=== PATIENT | male | born 1985 | race Caucasian/White ===

== ENCOUNTER 2023-07-14 15:36 | Emergency (ER) | payer SELFPAY ==
[~2023-07-14] VITALS: Ht 180.3 cm; Wt 88.5 kg
[2023-07-14] MEDS ORDERED: IBUP200 PO (15:54)
[2023-07-14] MEDS ORDERED: AMOCLA875 PO (15:56)
== END 2023-07-14 15:59 | disposition home or self-care (01) ==
LOC: ER 15:36
DX: H66.91 Otitis media, unspecified, right ear (principal)
CPT/HCPCS: 99282